=== PATIENT | male | born 1965 | race Caucasian/White ===

== ENCOUNTER 2016-03-24 04:54 | Observation (INO) | payer OTHER ==
[~2016-03-24] VITALS: Ht 193 cm; Wt 121.8 kg
--- NOTE | 2016-03-24 07:20 | DIAGNOSTIC IMAGING REPORT ---
PROCEDURE: CTA THORAX WITH CONTRAST INDICATION: Right chest pain and elevated D-dimer (1.93). TECHNIQUE: 88 ml of Isovue 370 was injected intravenously and axial images were obtained of the entire thorax with 3D sagittal and coronal MIP reconstructions. COMPARISON: None. FINDINGS: There are large right upper lobe and middle lobe acute pulmonary emboli with moderate right lower lobe emboli. Findings are associated with mild right basilar atelectasis/consolidation. There are small to moderate pulmonary emboli at the left lung base with mild left basilar atelectasis/consolidation. Heart and mediastinum are normal. Thorax is normal. Moderate generalized fatty infiltration of the liver (partially visualized). IMPRESSION: 1. Moderate to large right lung acute pulmonary emboli. 2. There are small to moderate left lung acute pulmonary emboli. 3. Associated mild bibasilar atelectasis or consolidation (i.e., possible infarction). 4. Findings discussed with Dr. Hi Gruber. All CT scans at this facility use dose modulation, iterative reconstruction, and/or weight-based dosing when appropriate to reduce radiation dose to as low as reasonably achievable.
--- NOTE | 2016-03-24 07:21 | ED NURSING NOTES ---
Clinical Report - Nurses Formerly [facility] [place] [address] 03/24/2016 4:55 [id number] TRI[facility] Triage time 04:58. Acuity: LEVEL 3. Chief Complaint: CHEST PAIN and (Chest pain, feels like a pulled muscle). Alert. No acute distress. --05:02 Sharif Albarado R.N. 04:56 03/24/16. BP: 150/100. HR: 82. RR: 20. O2 saturation: 89%. Temp: 97.7 F. Pain level now 07/23. --05:02 Sharif Albarado R.N. Weight: 120.2 kg stated. Height/Length: 76 inches Per Patient. BMI: 32.3. --05:01 Sharif Albarado R.N. Medications Atenolol Oral. --05:00 Sharif Albarado R.N. Allergies Penicillin. --05:00 Sharif Albarado R.N. History Arrived by private vehicle. Historian not patient. ( pain in right side of chest. Worse with deep inspiration). This started last night. Treatment PROCESS OPERATOR: None. SOCIAL HX: Unknown if ever smoked. Occasional alcohol use. FALL RISK ASSESSMENT: Fall risk assessment completed. No fall risk identified. NUTRITIONAL RISK ASSESSMENT: The nutritional risk assessment revealed no deficiencies. FUNCTIONAL ASSESSMENT: Functional assessment: no impairments noted. LEARNING NEEDS ASSESSMENT: The learning needs assessment revealed no barriers. SKIN INTEGRITY ASSESSMENT: Skin integrity risk assessment completed. No skin integrity risk identified. --05:02 Sharif Albarado R.N. Interventions ID band on patient. To room. --05:02 Sharif Albarado R.N. PHYSICAL ASSESSMENT GENERAL / NEURO / PSYCH: Alert. Oriented X 4. Appears in no acute distress. Appears anxious. RESPIRATORY: Respirations not labored. SKIN: Skin is warm and dry. --05:03 Sharif Albarado R.N. NURSING PROGRESS NOTES Oxygen administered. Monitoring of patient in place. Patient gowned. Reassurance given. Two patient identifiers checked. Call light placed in reach. Side rails up. Bed placed in lowest position. --05:03 Sharif Albarado R.N. 05:04 03/24/2016 Site #1 started via IV in the left upper arm with an 20g angiocath; one attempt. Blood drawn: rainbow set. Labeled in the presence of the patient and sent to the lab. Saline lock flushed with 10 mL saline. --05:09 Sharif Albarado R.N. EKG time: (0501). EKG was ordered, performed by a tech and shown to the ED physician. --05:12 Donte Perera, ER Lead Warehouse Associate electronic device monitor placed on patient; monitor alarms on. --05:15 Donte Perera, ER Lead Warehouse Associate 05:15 03/24/2016 Aspirin PO Tablets 325 mg given. Allergies verified and confirmed 5 rights. --05:15 Sharif Albarado R.N. Care transferred and report given. --07:05 Sharif Albarado R.N. Care transferred and report received. --07:11 Antonino Perez R.N. Patient identifiers checked. Call light placed in reach. Bed placed in lowest position. Patient waiting for lab results. ( Patient resting in room, aware that he will be admitted this morning. He states his is aware. Will return to administer ordered Lovenox.). --07:29 Antonino Perez R.N. 07:30 03/24/2016 Aspirin PO Response: no adverse reaction. --09:06 Antonino Perez R.N. 07:37 03/24/2016 Lovenox (Enoxaparin Sodium) Subcutaneous 60 mg given. Given in the right abdomen (split dose). Allergies verified and confirmed 5 rights. --07:37 Antonino Perez R.N. Care transferred and report given. ( Leesa DANIELLE on Acute Care.). --08:20 Antonino Perez R.N. 08:53 03/24/2016 Site #[address] upon admission; patent, no pain and no signs of infection or infiltration. --09:08 Antonino Perez R.N. 09:06 03/24/2016 Lovenox Subcutaneous Response: no adverse reaction. --09:06 Antonino Perez R.N. DISPOSITION / DISCHARGE Condition at departure: stable. The goals identified in the patient's plan of care were met. Bed obtained and ready. Patient's personal items include, 07:41 Mar 24 2016; items were placed in belongings bag, given to the patient and transported with the patient. --07:41 Antonino Perez R.N. 07:37 03/24/16. BP: 130/88. HR: 76. RR: 18. O2 saturation: 98% on nasal cannula at 4 liters/minute. Temp: 98.1 F. Pain level now: 07/23. --07:41 Antonino Perez R.N. Departure time: 09:00 Mar 24 2016. Admitted to Acute Care (09:00 AM Mar 24 2016). Transported via stretcher by transport team with O2. Report was given to a nurse via a phone call. Report included patient's care, treatment, medications, reviewed medication reconcilliation, and condition (including any recent changes or anticipated changes). All questions were answered. Report was acknowledged and care was transferred. --09:04 Antonino Perez R.N. Locked/Released at 03/24/2016 9:09 by Antonino Perez R.N.
--- NOTE | 2016-03-24 07:21 | ED NURSING NOTES ---
Clinical Report - Nurses [facility] [place] [address] 03/24/2016 4:55 [id number] Triage time 04:58. Acuity: LEVEL 3. Chief Complaint: CHEST PAIN and (Chest pain, feels like a pulled muscle). Alert. No acute distress. --05:02 Sharif Albarado R.N. 04:56 03/24/16. BP: 150/100. HR: 82. RR: 20. O2 saturation: 89%. Temp: 97.7 F. Pain level now 07/23. --05:02 Sharif Albarado R.N. Weight: 120.2 kg stated. Height/Length: 76 inches Per Patient. BMI: 32.3. --05:01 Sharif Albarado R.N. Medications Atenolol Oral. --05:00 Sharif Albarado R.N. Allergies Penicillin. --05:00 Sharif Albarado R.N. History Arrived by private vehicle. Historian not patient. ( pain in right side of chest. Worse with deep inspiration). This started last night. Treatment TRUCK DESPATCHER: None. SOCIAL HX: Unknown if ever smoked. Occasional alcohol use. FALL RISK ASSESSMENT: Fall risk assessment completed. No fall risk identified. NUTRITIONAL RISK ASSESSMENT: The nutritional risk assessment revealed no deficiencies. FUNCTIONAL ASSESSMENT: Functional assessment: no impairments noted. LEARNING NEEDS ASSESSMENT: The learning needs assessment revealed no barriers. SKIN INTEGRITY ASSESSMENT: Skin integrity risk assessment completed. No skin integrity risk identified. --05:02 Sharif Albarado R.N. Interventions ID band on patient. To room. --05:02 Sharif Albarado R.N. PHYSICAL ASSESSMENT GENERAL / NEURO / PSYCH: Alert. Oriented X 4. Appears in no acute distress. Appears anxious. RESPIRATORY: Respirations not labored. SKIN: Skin is warm and dry. --05:03 Sharif Albarado R.N. NURSING PROGRESS NOTES Oxygen administered. Monitoring of patient in place. Patient gowned. Reassurance given. Two patient identifiers checked. Call light placed in reach. Side rails up. Bed placed in lowest position. --05:03 Sharif Albarado R.N. 05:04 03/24/2016 Site #1 started via IV in the left upper arm with an 20g angiocath; one attempt. Blood drawn: rainbow set. Labeled in the presence of the patient and sent to the lab. Saline lock flushed with 10 mL saline. --05:09 Sharif Albarado R.N. EKG time: (0501). EKG was ordered, performed by a tech and shown to the ED physician. --05:12 Donte Perera, ER Knocker Out door trimmer placed on patient; monitor alarms on. --05:15 Donte Perera, ER Knocker Out 05:15 03/24/2016 Aspirin PO Tablets 325 mg given. Allergies verified and confirmed 5 rights. --05:15 Sharif Albarado R.N. Care transferred and report given. --07:05 Sharif Albarado R.N. Care transferred and report received. --07:11 Antonino Perez R.N. Patient identifiers checked. Call light placed in reach. Bed placed in lowest position. Patient waiting for lab results. ( Patient resting in room, aware that he will be admitted this morning. He states his is aware. Will return to administer ordered Lovenox.). --07:29 Antonino Perez R.N. 07:30 03/24/2016 Aspirin PO Response: no adverse reaction. --09:06 Antonino Perez R.N. 07:37 03/24/2016 Lovenox (Enoxaparin Sodium) Subcutaneous 60 mg given. Given in the right abdomen (split dose). Allergies verified and confirmed 5 rights. --07:37 Antonino Perez R.N. Care transferred and report given. ( Leesa DANIELLE on Acute Care.). --08:20 Antonino Perez R.N. 08:53 03/24/2016 Site #[address] upon admission; patent, no pain and no signs of infection or infiltration. --09:08 Antonino Perez R.N. 09:06 03/24/2016 Lovenox Subcutaneous Response: no adverse reaction. --09:06 Antonino Perez R.N. DISPOSITION / DISCHARGE Condition at departure: stable. The goals identified in the patient's plan of care were met. Bed obtained and ready. Patient's personal items include, 07:41 Mar 24 2016; items were placed in belongings bag, given to the patient and transported with the patient. --07:41 Antonino Perez R.N. 07:37 03/24/16. BP: 130/88. HR: 76. RR: 18. O2 saturation: 98% on nasal cannula at 4 liters/minute. Temp: 98.1 F. Pain level now: 07/23. --07:41 Antonino Perez R.N. Departure time: 09:00 Mar 24 2016. Admitted to Acute Care (09:00 AM Mar 24 2016). Transported via stretcher by transport team with O2. Report was given to a nurse via a phone call. Report included patient's care, treatment, medications, reviewed medication reconcilliation, and condition (including any recent changes or anticipated changes). All questions were answered. Report was acknowledged and care was transferred. --09:04 Antonino Perez R.N. Locked/Released at 03/24/2016 9:09 by Antonino Perez R.N.
--- NOTE | 2016-03-24 07:21 | ED ORDER SUMMARY ---
..... Patient: LAYA FRAUSTO OrderSheet [facility] VisitID: [id number] [place] [address] 51y, M Registration Date/Time: 03/24/2016 ORDER SHEET Weight: 120.2 kg (stated) Allergies: Penicillin GENERAL ORDERS: Chest 1V Urgent (05:05 03/24/2016 Leroy URBAN) (5:08 GMarshall R.N.) (Cancelled: Physician Order6:34 EInderbitzen R.N.) Aquaculture Director (Continuous) (05:05 03/24/2016 Leroy URBAN) (5:08 GMarshall R.N.) Cardiac Panel Stat (05:05 03/24/2016 Leroy URBAN) (5:08 GMarshall R.N.) Oxygen (2 L/min) (NC) (05:05 03/24/2016 Leroy URBAN) (5:08 GMarshall R.N.) Pulse oximeter (05:05 03/24/2016 Leroy URBAN) (5:08 GMarshall R.N.) EKG - ER Stat (05:05 03/24/2016 Leroy URBAN) (5:08 GMarshall R.N.) D-Dimer Urgent (05:13 03/24/2016 Leroy URBAN) (5:21 GMarshall R.N.) (Ack 5:22 Toan) CTA Thorax w Cont (No) (see chart) Urgent (05:58 03/24/2016 Leroy URBAN) (Ack 6:00 Toan) (6:36 Kwesi) PT with INR Urgent (07:17 03/24/2016 Leroy URBAN) (7:18 MCook R.N.) MEDICATION ORDERS: Aspirin PO 325 mg (NOW) (05:11 03/24/2016 Leroy URBAN) (5:15 GMarshall R.N.) Lovenox Subcut 120 mg (NOW) (07:11 03/24/2016 Leroy URBAN) (7:37 MCook R.N.) IV FLUIDS: IV Saline Lock (05:05 03/24/2016 Leroy URBAN) (5:09 TILAarskristy Rivera) ORDER SHEET NOTES: [Electronically signed by Antonino Perez R.N. (09:03/24/2016)] [Electronically signed by Hi Gruber MD (09:19 03/25/2016)] [Electronically locked/signed by Antonino Perez R.N. (09:03/24/2016)]
--- NOTE | 2016-03-24 07:21 | ED ORDER SUMMARY ---
..... Patient: LAYA FRAUSTO OrderSheet [facility] VisitID: [id number] [place] [address] 51y, M Registration Date/Time: 03/24/2016 ORDER SHEET Weight: 120.2 kg (stated) Allergies: Penicillin GENERAL ORDERS: Chest 1V Urgent (05:05 03/24/2016 Leroy URBAN) (5:08 GMarshall R.N.) (Cancelled: Physician Order6:34 EInderbitzen R.N.) White Kid Buffer (Continuous) (05:05 03/24/2016 Leroy URBAN) (5:08 GMarshall R.N.) Cardiac Panel Stat (05:05 03/24/2016 Leroy URBAN) (5:08 GMarshall R.N.) Oxygen (2 L/min) (NC) (05:05 03/24/2016 Leroy URBAN) (5:08 GMarshall R.N.) Pulse oximeter (05:05 03/24/2016 Leroy URBAN) (5:08 GMarshall R.N.) EKG - ER Stat (05:05 03/24/2016 Leroy URBAN) (5:08 GMarshall R.N.) D-Dimer Urgent (05:13 03/24/2016 Leroy URBAN) (5:21 GMarshall R.N.) (Ack 5:22 Toan) CTA Thorax w Cont (No) (see chart) Urgent (05:58 03/24/2016 Leroy URBAN) (Ack 6:00 Toan) (6:36 Kwesi) PT with INR Urgent (07:17 03/24/2016 Leroy URBAN) (7:18 MCook R.N.) MEDICATION ORDERS: Aspirin PO 325 mg (NOW) (05:11 03/24/2016 Leroy URBAN) (5:15 GMarshall R.N.) Lovenox Subcut 120 mg (NOW) (07:11 03/24/2016 Leroy URBAN) (7:37 MCook R.N.) IV FLUIDS: IV Saline Lock (05:05 03/24/2016 Leroy URBAN) (5:09 TILAarskristy Rivera) ORDER SHEET NOTES: [Electronically signed by Antonino Perez R.N. (09:03/24/2016)] [Electronically signed by Hi Gruber MD (09:19 03/25/2016)] [Electronically locked/signed by Antonino Perez R.N. (09:03/24/2016)]
--- NOTE | 2016-03-24 07:21 | ED CLINICAL REPORT ---
Clinical Report - Physicians/Mid Levels [facility] [address] [place] [address] 03/24/2016 4:55 Patient: LAYA BAÑUELOS Time Seen: 05:02. Arrived- By private vehicle. Historian- patient. HISTORY OF PRESENT ILLNESS Chief Complaint: CHEST PAIN. Severity: 2 at rest 6 with deep breath. At its maximum, severity described as 7 / 10. When seen in the E.D., severity described as 2 / 10. Modifying factors- worsened by movement and deep breaths. It is described as aching and sharp and it is described as located in the right chest area. This started at 7 PM; 2-3 inch area behind the R breast and is still present. It was gradual in onset. Onset during light activity. No nausea or vomiting. He has had difficulty breathing (hurts to breath). (Heavy lifting yesterday.). Similar symptoms previously: Recent medical care: The patient was seen recently by a health care provider. ( By PCP in December). REVIEW OF SYSTEMS No fever, chills, cough, pedal edema or calf pain. No headache, sore throat, blurred vision, abdominal pain or black stools. No difficulty with urination, skin rash, enlarged lymph nodes, joint pain or bloody stools. No fever or ear pain. The patient has had chills (rare). 2.5 WEEKS of now improving R great toe pain. PAST HISTORY [facility]: Lithotripsy, Laminectomy Hosp: Back pain Illness: See risk factors. Risk factors for heart disease- elevated cholesterol, positive family history and hypertension. Denies the following risk factors for heart disease - diabetes and smoking. SOCIAL HISTORY Never smoker. ADDITIONAL NOTES The nursing notes have been reviewed. PHYSICAL EXAM Vital Signs: 03/24/2016 04:56 BP: 150/100. HR: 82. RR: 20. O2 saturation: 89%. Temp: 97.7 F. Appearance: Alert. No acute distress. Eyes: Eyes normal inspection. ENT: Pharynx normal. CVS: Normal heart rate and rhythm. Heart sounds normal. Respiratory: No respiratory distress. Mild rales in the left lung base posteriorly. Chest nontender. No rhonchi or wheezes. Abdomen: Soft and nontender. Bowel sounds normal. Skin: Skin warm. Normal skin color. Extremities: Extremities exhibit normal ROM. No lower extremity edema. LABS, X-RAYS, AND EKG EKG: Normal sinus rhythm. Rate: 83. Occasional ectopic beats. Premature ventricular contractions. Normal P waves. Normal AP. Normal QRS complex. Normal axis. Normal ST and T waves. No non-specific ST segment / T wave abnormalities or ST elevation. Interpretation time: 05:02. Chest CT: Large pulmonary embolism (multiple and bilateral). The study was interpreted by the radiologist and contemporaneously by me. The study was discussed with the radiologist (Dr Simmons). Laboratory Tests: CBC w Diff: (ERIN: 03/24/2016 05:03) ( MsgRcvd 03/24/2016 05:15) Final results Test Result Flag Units (Reference) WHITE BLOOD COUNT 11.4 K/uL (4.5-11.5) RED BLOOD COUNT 5.37 M/uL (4.50-5.90) HEMOGLOBIN 16.4 gm/dL (13.5-17.5) HEMATOCRIT 49.3 % (41.0-53.0) MEAN CELL VOLUME 92 fL (80-100) MEAN CORPUSCULAR HGB 31 pg (26-34) MEAN CORPUSCULAR HGB CONC 33 g/dL (31-37) RED CELL DISTRIBUTION WIDTH 12.5 % (11.6-14.8) PLATELET COUNT 192 K/uL (150-400) NEUTROPHIL % 76.7 H % (50-75) LYMPH % 14.1 L % (25-40) MONO % 7.5 % (3-14) EOSINOPHIL % 1.4 % (0-4) BASOPHIL % 0.3 % (0-2) [id number]: (ERIN: 03/24/2016 05:03) ( MsgRcvd 03/24/2016 05:31) Final results Test Result Flag Units (Reference) D-DIMER QUANTITATIVE 1.93 H ug/mLFEU (0.27-0.52) The primary value of this quantitative assay relates toits negative predictive value (i.e. exclusion) of pulmonaryembolism/deep vein thrombosis/DIC.Elevated levels of d-dimer may also occur with:, age, cancer, inflammation, liver disease,post-op, infection, hematoma, coronary disease, peripheralarteriopathy, bleeding disorders and thrombolytic treatment.Results should be correlated with other clinical andradiological data.Testing Methodology: Latex Immunoassay CHEM 13 PANEL: (ERIN: 03/24/2016 05:03) ( MsgRcvd 03/24/2016 05:37) Final results Test Result Flag Units (Reference) GLUCOSE 113 H mg/dL (70-110) BUN 16 mg/dL (7-18) CREATININE 0.9 mg/dL (0.6-1.3) Estimated GFR >60 mL/min Estimated GFR- >60 mL/min Note: Persistent reduction over 3 months in eGFR<60 mL/min/1.73 m2 defines CKD. Patients with eGFR values>=60 mL/min/1.73 m2 may also have CKD if evidence ofpersistent proteinuria. Additional information may be foundat www.kidney.org. SODIUM 141 mmol/L (136-145) POTASSIUM 3.7 mmol/L (3.5-5.1) CHLORIDE 104 mmol/L (98-107) CARBON DIOXIDE 26 mmol/L (21-32) CALCIUM 9.0 mg/dL (8.5-10.1) TOTAL PROTEIN 8.0 g/dL (6.4-8.2) ALBUMIN 3.9 g/dL (3.3-5.0) BILIRUBIN, TOTAL 0.9 mg/dL (0.0-1.0) ALKALINE PHOSPHATASE 71 U/L (46-116) AST (SGOT) 20 U/L (15-37) ALT (SGPT) 38 U/L (12-78) MAGNESIUM 2.0 mg/dL (1.8-2.4) CPK 83 U/L (24-260) TROPONIN I 0.08 ng/mL (0.00-1.5) TROPONIN REFERENCE RANGE:<0.1 NEGATIVE0.1-1.5 INDETERMINANT>1.5 POSITIVE . PROGRESS AND PROCEDURES Course of Care: 05:37 03/24/16. D.dimer elevated will order Thorax CTA 07:12 03/24/16. Multiple PE on CTA per Dr Simmons. Lovenox ordered. Mr. Bañuelos does not look ill despite the impressive CTA 07:19 03/24/16. Dr Stahl will accept the patient and states that he will come to the ED shortly, 07:37 03/24/16. Transitions orders are written. Dr Stahl has seen Mr. Bañuelos in the ED. 03/24/2016 07:37 BP: 130/88. HR: 76. RR: 18. O2 saturation: 98%. Temp: 98.1 F. Pain level now: 07/23. 03/24/2016 04:56 BP: 150/100. HR: 82. RR: 20. O2 saturation: 89%. Temp: 97.7 F. Critical care performed (45 minutes). Time is exclusive of separately billable procedures. Time includes: direct patient care, patient reassessment, coordination of patient care, interpretation of data and documentation of patient care- see progress notes. Disposition: Admitted. CLINICAL IMPRESSION Acute pulmonary embolism (MULTIPLE AND BILATERAL WITH INFARCTION). (Electronically signed by Hi Gruber MD 03/25/2016 9:19) Addenda for LAYA BAÑUELOS VisitID: [id number] Date: 03/24/2016 03/25/2016 9:18 Chart was complete but unlocked at the time of admission except for the statement of critical care which was added at the time of this addendum. (Electronically signed by Hi Gruber MD - 03/25/2016 9:18)
[2016-03-24] MEDS ORDERED: ATENOLOL25 MG PO (08:34)
--- NOTE | 2016-03-24 09:44 | NUR ---
PT ADMITTED TO 210B, FOR PULM EMBOLIS, H/O HYPERTENSION, TAKES ATENOLOL 50 MG AT HS, ALLERGY TO PCN CHILD DOES NOT REMEMBER HOW HE REACTED, HAD BACK SURGERY FOR SCIATICA, HAD SURGERY FOR REMOVAL OF KIDNEY STONE, DOES NOT REMEMBER IF LEFT OR RIGHT. NO OTHER ISSUES REPORTED. ORIENTED TO ROOM AND CALL LIGHT, REQUEST HE USE URINAL. ADMIT DATA BASE COMPLETED
--- NOTE | 2016-03-24 09:45 | NUR ---
RECEIVED PT FROM ED VIA [facility]. THEN ASSISTED BY MS PASCUAL FROM THE [facility] TO HIS BED IN 210B, TOLERATED IT WELL. AT 1100, PT IS AWAKE, ALERT, ORIENTED, COHERENT, COOPERARTIVE. V/S TAKEN AND RECORDED. ASSESSMENT DONE. PT DENIES PAIN AT THIS TIME. DR JOHN WILL NOTIFY REGARDING PLAN OF CARE. NEEDS ATENDED.
[2016-03-24 10:12] VITALS: BP 139/91
[2016-03-24 10:15] VITALS: BP 139/91
--- NOTE | 2016-03-24 11:04 | History & Physical Report ---
Information Source Information Source: Self Reliability: Good History Chief Complaint pain while breathing History of Present Illness Patient is a 51 year old male with a pmh of hypertension that is presenting with a one day history of shortness of breath and pain while breathing. Patient was in his usual state of health when he started to develop shortness of breath out of nowhere. He says that activities that would not usually cause shortness of breath caused him to be breathless. Additionally patient was noted to have chest pain over the right side. Patient was convinced that something was happening to his heart and therefore came to the ER to be evaluated. Patient has had no other symptoms in the recent past. Patient is otherwise stable and has no other problems at the moment. Patient History 1. Bilateral pulmonary embolism 2. Hypertension Social History - Pt does not smoke, he drinks socially and does not use illicit drugs Pt is employed at a [employer], lives with his . Family History Family history was reviewed; no changes noted. Advance Directive Durable POA-Healthcare Medications and Allergies Medications Home Meds Atenolol 50 mg q hs Current Medications Sig/Casey Start time Last Medication Dose Route Stop Time Status Admin Pantoprazole Sodium 40 MG DAILY@0600 03/25 0600 AC Sesquihydrate PO Enoxaparin Sodium 160 MG BID 03/24 2100 CAN SC Enoxaparin Sodium 60 MG BID 03/24 2100 CAN SC Rivaroxaban 15 MG BIDWC 03/24 1800 AC 03/24 PO 1732 Morphine Sulfate 1 MG Q4H PRN 03/24 0945 AC IV Allergies Coded Allergies: Penicillins (03/24/16) Review of Systems Constitutional Denies: Fever, Chills, Sweats, Weakness, Malaise, Other. Eyes Denies: Pain, Vision Change, Conjunctival Inflammation, Eyelid Inflammation, Redness, Other. Respiratory SOB w/exertion. Denies: Cough, Dry, Wheezing, Hemoptysis, Pleuritic Pain, Sputum, Other. Cardiovascular Chest Pain. Denies: Palpitations, Orthopnea, PND, Edema, Light-headedness, Other. Gastrointestinal Denies: Nausea, Vomiting, Abdominal Pain, Diarrhea, Constipation, Melena, Hematochezia, Other. Genitourinary Denies: Dysuria, Frequency, Incontinence, Hematuria, Retention, Other. Musculoskeletal Other (toe pain ). Denies: Neck Pain, Shoulder Pain, Arm Pain, Back Pain, Hand Pain, Leg Pain, Foot Pain. Skin Denies: Rash, Lesions, Jaundice, Bruising, Other. Physical Exam Vital Signs / I&Os Vital Signs Date Time Temp Pulse Resp B/P Pulse O2 O2 Flow FiO2 Ox Delivery Rate 03/24 1548 2.0 03/24 1446 97.9 88 16 133/90 96 Nasal 2.0 Cannula 03/24 1105 97.9 78 16 127/75 97 Nasal 2.0 Cannula 03/24 1100 Nasal 2.0 Cannula 03/24 1012 97.9 74 20 139/91 99 Nasal 2.0 Cannula 03/24 0925 2.0 General Appearance Alert, Oriented X3, No acute distress Lungs Normal air movement, tachypnea on exertion Cardiovascular Regular rate and rhythm, Normal S1 and S2, No murmurs, gallops, rubs Abdomen Soft, No tenderness, No guarding Extremities No clubbing, No edema, Normal pulses Skin No Rashes Psych/Mental Status Mental status normal LAB Results Laboratory Tests 03/24 03/24 0503 0503 Chemistry Plasma Sodium (136 - 145 mmol/L) 141 Plasma Potassium (3.5 - 5.1 mmol/L) 3.7 Plasma Chloride (98 - 107 mmol/L) 104 CO2 (Enzymatic) (21 - 32 mmol/L) 26 BUN (7 - 18 mg/dL) 16 Creatinine (0.6 - 1.3 mg/dL) 0.9 Est GFR ( Amer) (mL/min) >60 Est GFR (Non-Af Amer) (mL/min) >60 Glucose (70 - 110 mg/dL) 113 Plasma Calcium (8.5 - 10.1 mg/dL) 9.0 Plasma Magnesium (1.8 - 2.4 mg/dL) 2.0 Total Bilirubin (0.0 - 1.0 mg/dL) 0.9 AST (15 - 37 U/L) 20 ALT (12 - 78 U/L) 38 Alkaline Phosphatase (46 - 116 U/L) 71 Creatine Kinase (24 - 260 U/L) 83 Troponin (0.00 - 1.5 ng/mL) 0.08 Total Protein (6.4 - 8.2 g/dL) 8.0 Albumin (3.3 - 5.0 g/dL) 3.9 Coagulation INR (0.8 - 1.2) 0.9 D-Dimer, Quantitative (0.27 - 0.52 ug/mLFEU) 1.93 Hematology WBC (4.5 - 11.5 K/uL) 11.4 RBC (4.50 - 5.90 M/uL) 5.37 Hgb (13.5 - 17.5 gm/dL) 16.4 Hct (41.0 - 53.0 %) 49.3 MCV (80 - 100 fL) 92 MCH (26 - 34 pg) 31 RDW (11.6 - 14.8 %) 12.5 Neut % (Auto) (50 - 75 %) 76.7 Lymph % (Auto) (25 - 40 %) 14.1 [place] % (Auto) (3 - 14 %) 7.5 Eos % (Auto) (0 - 4 %) 1.4 Baso % (Auto) (0 - 2 %) 0.3 Plt Count, EDTA (150 - 400 K/uL) 192 PUBS MCHC (31 - 37 g/dL) 33 Assessment and Plan Problem List 1. Bilateral pulmonary embolism Plan - Pt found to have bilateral emboli L>>R - Pt is hemodynamically stable without any evidence of heart strain - Pt has shortness of breath while walking but no other further symptoms - Pt started on lovenox - Will start xarelto given it is approved 2. Hypertension Plan - will continue with atenolol 50 mg daily - Pt has been normotensive since admission
[2016-03-24 11:05] VITALS: BP 127/75
[2016-03-24 14:46] VITALS: BP 133/90
--- NOTE | 2016-03-24 18:30 | NUR ---
PATIENT IS SITTING UP IN BED, ALERT AND STATES HE WANTS TO GO HOME. STATES PAIN IS AT A 5 AND MANAGABLE. NO SOB, CHEST PAIN OR NAUSEA. LUNGS ARE CLEAR. NSR ON TELE. BEGAN XERALTO DURING THIS SHIFT. SEVERAL FAMILY MEMBERS VISITED WHICH LIFTED PT'S SPIRITS. CALL LIGHT WITH PT. BED LOW AND LOCKED. TM.
[2016-03-24 18:36] VITALS: BP 149/100
[2016-03-24 23:16] VITALS: BP 143/103
--- NOTE | 2016-03-25 01:30 | NUR ---
Patient mobilised around the goss before settling in bed. He confirms that pain is worsened by moving about. He has been precribes a blood thinner. Will continue to monitor.
[2016-03-25 02:28] VITALS: BP 150/97
[2016-03-25 07:17] VITALS: BP 141/94
--- NOTE | 2016-03-25 09:19 | ED MAR SUMMARY ---
..... Medication Administration Record [facility] [address] [place] [address] Patient: LAYA FRAUSTO Visit ID: [id number] 51y, M Weight: 120.2 kg Height/Length: 76 in BMI: 32.3 ALLERGIES: Penicillin Given 05:15 03/24/2016 Sharif Albarado R.N. Medication Administered: ASPIRIN [PO], Dose: 325 mg Tablets PO. Medication Ordered: Aspirin PO 325 mg (NOW). Given 07:37 03/24/2016 Antonino Perez R.N. Medication Administered: LOVENOX [SUBCUTANEOUS] (ENOXAPARIN SODIUM), Dose: 60 mg Subcutaneous. Medication Ordered: Lovenox Subcut 120 mg (NOW).
--- NOTE | 2016-03-25 09:19 | ED MAR SUMMARY ---
..... Medication Administration Record [facility] [address] [place] [address] Patient: LAYA FRAUSTO Visit ID: [id number] 51y, M Weight: 120.2 kg Height/Length: 76 in BMI: 32.3 ALLERGIES: Penicillin Given 05:15 03/24/2016 Sharif Albarado R.N. Medication Administered: ASPIRIN [PO], Dose: 325 mg Tablets PO. Medication Ordered: Aspirin PO 325 mg (NOW). Given 07:37 03/24/2016 Antonino Perez R.N. Medication Administered: LOVENOX [SUBCUTANEOUS] (ENOXAPARIN SODIUM), Dose: 60 mg Subcutaneous. Medication Ordered: Lovenox Subcut 120 mg (NOW).
--- NOTE | 2016-03-25 09:19 | ED MED RECONCILIATION SUMMARY ---
Patient: LAYA FRAUSTO Medication Reconciliation Report [facility] VisitID: [id number] [address] [place] [address] 51y, M Registration Date/Time: 03/24/2016 Weight: 120.2 kg Height/Length: 76 in. BMI: 32.3 ALLERGIES: Penicillin The patient's Home Medications are listed below: THE FOLLOWING MEDICATIONS NEED TO BE RECONCILED: Atenolol Oral The source(s) of the original Home Medication information: Not obtained. The following Medications were given to the patient in the Emergency Department: Aspirin [PO] PO 325 mg, administered: 03/24/2016 5:15:00 AM Lovenox [Subcutaneous] Subcutaneous 60 mg, administered: 03/24/2016 7:37:00 AM The following Medications were prescribed to the patient: None.
--- NOTE | 2016-03-25 09:19 | ED DISCHARGE INSTRUCTIONS ---
Patient: LAYA FRAUSTO General Instructions [facility] VisitID: [id number] [address] [place] [address] 51y, M Registration Date/Time: 03/24/2016 Acute pulmonary embolism (MULTIPLE AND BILATERAL WITH INFARCTION). (Electronically signed by Hi Gruber MD 03/25/2016 9:19)
--- NOTE | 2016-03-25 09:19 | ED DISCHARGE INSTRUCTIONS ---
Patient: LAYA FRAUSTO General Instructions [facility] VisitID: [id number] [address] [place] [address] 51y, M Registration Date/Time: 03/24/2016 Acute pulmonary embolism (MULTIPLE AND BILATERAL WITH INFARCTION). (Electronically signed by Hi Gruber MD 03/25/2016 9:19)
--- NOTE | 2016-03-25 09:19 | ED MED RECONCILIATION SUMMARY ---
Patient: LAYA FRAUSTO Medication Reconciliation Report [facility] VisitID: [id number] [address] [place] [address] 51y, M Registration Date/Time: 03/24/2016 Weight: 120.2 kg Height/Length: 76 in. BMI: 32.3 ALLERGIES: Penicillin The patient's Home Medications are listed below: THE FOLLOWING MEDICATIONS NEED TO BE RECONCILED: Atenolol Oral The source(s) of the original Home Medication information: Not obtained. The following Medications were given to the patient in the Emergency Department: Aspirin [PO] PO 325 mg, administered: 03/24/2016 5:15:00 AM Lovenox [Subcutaneous] Subcutaneous 60 mg, administered: 03/24/2016 7:37:00 AM The following Medications were prescribed to the patient: None.
[2016-03-25] MEDS ORDERED: XARELTO10 MG PO (09:22)
--- NOTE | 2016-03-25 09:25 | Discharge Summary ---
Discharge Summary Report Admit Date 03/24/16 Discharge Date 03/25/16 Admission Diagnosis Pulmonary Embolus Discharge Diagnosis Pulmonary Embolus Brief History Patient is a 51 year old male with a pmh of hypertension that is presenting with a one day history of shortness of breath and pain while breathing. Patient was in his usual state of health when he started to develop shortness of breath out of nowhere. He says that activities that would not usually cause shortness of breath caused him to be breathless. Additionally patient was noted to have chest pain over the right side. Patient was convinced that something was happening to his heart and therefore came to the ER to be evaluated. Patient has had no other symptoms in the recent past. Patient is otherwise stable and has no other problems at the moment. Hospital Course PT was admitted with the diagnosis of pulmonary embolus. Patient was seen to have bilateral pulmonary emboli with left being more significant than the right. The patient was admitted to acute care given his hemodynamic stability and normal oxygenation. Patient was initially started on lovenox however patients insurance covered the xarelto, therefore patient was started on that. Patient had no events overnight. Patient tolerated the medication well without any problems. Patient will be discharged, he will follow up with his pmd within a week. Patients lipids were recongized as high, patient will follow up with his pmd regarding starting a statin. Patient will be discharged today. General Appearance Alert, Oriented X3, No acute distress HEENT EOMI, Mucous membran moist/pink Lungs Clear to auscultation, Normal air movement Cardiovascular Normal S1, Normal S2 Abdomen Soft, No masses Psych/Mental Status Mental status NL Lab/Imaging Name: LAYA FRAUSTO : [birth year] Sex: Male Age: 51 MR#: [id number] Pt Status: REG ER Ordering Provider: HI RUFFIN MD REPORT #: [id number] DATE OF EXAM(S): 03/24/16 PROCEDURE: CTA THORAX WITH CONTRAST INDICATION: Right chest pain and elevated D-dimer (1.93). TECHNIQUE: 88 ml of Isovue 370 was injected intravenously and axial images were obtained of the entire thorax with 3D sagittal and coronal MIP reconstructions. COMPARISON: None. FINDINGS: There are large right upper lobe and middle lobe acute pulmonary emboli with moderate right lower lobe emboli. Findings are associated with mild right basilar atelectasis/consolidation. There are small to moderate pulmonary emboli at the left lung base with mild left basilar atelectasis/consolidation. Heart and mediastinum are normal. Thorax is normal. Moderate generalized fatty infiltration of the liver (partially visualized). IMPRESSION: 1. Moderate to large right lung acute pulmonary emboli. 2. There are small to moderate left lung acute pulmonary emboli. 3. Associated mild bibasilar atelectasis or consolidation (i.e., possible infarction). 4. Findings discussed with Dr. Hi Ruffin. Laboratory Tests 03/25 03/25 0500 0540 Chemistry Plasma Sodium (136 - 145 mmol/L) Cancelled 141 Plasma Potassium (3.5 - 5.1 mmol/L) Cancelled 3.7 Plasma Chloride (98 - 107 mmol/L) Cancelled 106 CO2 (Enzymatic) (21 - 32 mmol/L) Cancelled 24 BUN (7 - 18 mg/dL) Cancelled 12 Creatinine (0.6 - 1.3 mg/dL) Cancelled 0.8 Est GFR ( Amer) (mL/min) Cancelled >60 Est GFR (Non-Af Amer) (mL/min) Cancelled >60 Glucose (70 - 110 mg/dL) Cancelled 97 Plasma Calcium (8.5 - 10.1 mg/dL) Cancelled 8.5 Plasma Magnesium (1.8 - 2.4 mg/dL) Cancelled 1.9 Total Bilirubin (0.0 - 1.0 mg/dL) 0.8 AST (15 - 37 U/L) 18 ALT (12 - 78 U/L) 30 Alkaline Phosphatase (46 - 116 U/L) 58 Total Protein (6.4 - 8.2 g/dL) 6.8 Albumin (3.3 - 5.0 g/dL) 3.2 Coagulation INR (0.8 - 1.2) 1.3 Hematology WBC (4.5 - 11.5 K/uL) 8.9 RBC (4.50 - 5.90 M/uL) 4.53 Hgb (13.5 - 17.5 gm/dL) 14.1 Hct (41.0 - 53.0 %) 41.8 MCV (80 - 100 fL) 92 MCH (26 - 34 pg) 31 RDW (11.6 - 14.8 %) 12.8 Neut % (Auto) (50 - 75 %) 64.7 Lymph % (Auto) (25 - 40 %) 23.1 [place] % (Auto) (3 - 14 %) 9.9 Eos % (Auto) (0 - 4 %) 2.0 Baso % (Auto) (0 - 2 %) 0.3 Plt Count, EDTA (150 - 400 K/uL) 166 PUBS MCHC (31 - 37 g/dL) 34 Discharge Instructions/Meds - take medications as prescribed - follow up with pmd regarding the switch to 20 mg xarelto pills in 20 days - follow up with pmd regarding starting a statin
--- NOTE | 2016-03-25 09:25 | Provider's Discharge Care Plan ---
Problem, Goal, Plan Problem List 1. Bilateral pulmonary embolism Instructions: Take meds as directed, - follow up with pmd 2. Hypertension Instructions: Take meds as directed
--- NOTE | 2016-03-25 09:25 | NUR ---
RECEIVED PT IN BED, ON HIGH NAIDU'S POSITION, AWAKE, ALERT, ORIENTED, COHERENT, COOPERATIVE. V/S TAKEN AND RECORDED. ASSESSMENT DONE. PT DENIES ANY PAIN AT THIS TIME. PT AMBULATE AT 0900, (+) SOB TOWARDS THE END OF THE LOOP. O2 SAT ON RA, AFTER AMBULATION IS 90%. AT 0925, O2 SAT ON RA, WHILE IN BED, AT REST IS 94-95%. IS GIVEN AND INSTRUC.
--- NOTE | 2016-03-25 09:25 | Provider's Discharge Care Plan ---
Problem, Goal, Plan Problem List 1. Bilateral pulmonary embolism Instructions: Take meds as directed, - follow up with pmd 2. Hypertension Instructions: Take meds as directed
[2016-03-25 10:32] VITALS: BP 149/97
--- NOTE | 2016-03-25 13:08 | NUR ---
DISCHARGE INSTRUCS., PRESC., GIVEN TO PT AND . QUESTIONS AND CONCERNS ANSWERED. WE WILL RESCHED HIS APPOINTMENT FOR NEXT WK INSTEAD OF Mar. OFFICE IS CLOSE AT THIS TIME. AT 1338, PT WENT HOME WITH THE , ASSITED BY ME TO THE LOBBY, PT PREFERS TO AMBULATE. AT 1405. APPOINTEMNT WAS RESCEH TO Mar AT 1600, MS VALE NOTIFIED PT.
== END 2016-03-25 14:00 | disposition home or self-care (01) ==
LOC: ED SRH 04:54 → TRANS SRH 07:26 → ACUTE2 SRH 09:08
PROVIDERS: ADMIT Internal Medicine
DX: I26.99 Other pulmonary embolism without acute cor pulmonale (principal); I10 Essential (primary) hypertension
CPT/HCPCS: 29230; 29251; 90074; 90100; 90616; 91556; 92610; 92720; 94060; 95059